=== PATIENT | female | born 1995 | race African-American/Black ===

== ENCOUNTER 2022-06-21 23:54 | Emergency (ER) | payer SELFPAY ==
[2022-06-22 00:04] VITALS: BP 126/88; PULSE 100; RESP 18; TEMP 98.2; BMI 36.8
[2022-06-22] MEDS ORDERED: KETOROLAC TROMETHAMINE 15 MG/ML VIAL IM ONE (01:52)
[2022-06-22] MEDS ORDERED: KETOROLAC TROMETHAMINE 15 MG/ML VIAL ONE (02:01)
[2022-06-22] MEDS ORDERED: ACYCLOVIR 400 MG TABLET PO ONE (02:30)
[2022-06-22] MEDS ORDERED: ACYCLOVIR 200 MG CAPSULE ONE (02:33)
== END 2022-06-22 02:41 | disposition home or self-care (01) ==
LOC: JER 23:54
DX: B02.9 Zoster without complications (principal)
CPT/HCPCS: 99281-25